=== PATIENT | female | born 1980 ===

== ENCOUNTER → 2025-02-28 09:16 | Outpatient (CLI) | payer OTHER, SELFPAY ==
[2025-02-28 10:50] LABS: HCG Quantitative /Beta subunit 111.59 mIU/mL
== END ==
PROVIDERS: PCP Obstetrics & Gynecology; Referring Provider Obstetrics & Gynecology; Visit Provider Obstetrics & Gynecology
DX: Z34.90 Encounter for supervision of normal pregnancy, unspecified, unspecified trimester (principal)
CPT/HCPCS: 36415; 84702

== ENCOUNTER → 2025-03-03 08:59 | Outpatient (CLI) | payer OTHER, SELFPAY ==
[2025-03-03 10:36] LABS: HCG Quantitative /Beta subunit 395.48 mIU/mL
== END ==
PROVIDERS: PCP Obstetrics & Gynecology; Referring Provider Obstetrics & Gynecology; Visit Provider Obstetrics & Gynecology
DX: N91.2 Amenorrhea, unspecified (principal)
CPT/HCPCS: 36415; 84702

== ENCOUNTER → 2025-03-07 10:19 | Outpatient (CLI) | payer OTHER, SELFPAY ==
[2025-03-07 11:17] LABS: HCG Quantitative /Beta subunit 1405.8 mIU/mL
== END ==
LOC: LAB 10:20
PROVIDERS: PCP Obstetrics & Gynecology; Referring Provider Obstetrics & Gynecology; Visit Provider Obstetrics & Gynecology
DX: Z34.90 Encounter for supervision of normal pregnancy, unspecified, unspecified trimester (principal)
CPT/HCPCS: 36415; 84702

== ENCOUNTER → 2025-03-12 07:44 | Outpatient (CLI) | payer OTHER, SELFPAY ==
--- NOTE | 2025-03-12 07:47 | DI.US.S_ITS ---
PROCEDURE: US OB <= 14 WEEKS FETUS INDICATIONS: size and dates OUTSIDE/PRIOR DATING DATA: Last menstrual period (LMP): 01/30/2025. LMP-based estimated date of delivery (MAGDALENA): 11/06/2025. TECHNIQUE: Real-time scanning was performed of the fetus and maternal pelvic organs, with image documentation. Endovaginal scanning was also performed to better visualize the fetus and maternal ovaries. COMPARISON: None. FINDINGS: A gestational sac is seen measuring 0.66 centimeters, consistent with 5 weeks and 3 days. No pole is identified. A yolk sac is present. Maternal organs: Right ovary is not seen. Possible left ovarian corpus luteal cyst. IMPRESSION: Gestational sac is seen containing a yolk sac. No pole is identified. Recommend follow-up ultrasound in 7-14 days to assess viability. We strive to produce accurate, complete, and clear reports of imaging services. To assist us in improving patient care, this report was composed using standard report templates and voice recognition software. Therefore, it may contain abnormal punctuation, insertions and/or omissions. Occasional wrong-word or sound-alike substitutions may occur. Though we review the report and make efforts to correct it, we do recommend that the report be read carefully in proper context to recognize any text inaccuracies. Dictated by: Jeremiah Beavers M.D. on 03/12/2025 at 10:00 Approved by: Jeremiah Beavers M.D. on 03/12/2025 at 10:02
== END ==
PROVIDERS: PCP Obstetrics & Gynecology; Referring Provider Obstetrics & Gynecology; Visit Provider Obstetrics & Gynecology
DX: Z34.91 Encounter for supervision of normal pregnancy, unspecified, first trimester (principal); Z3A.01 Less than 8 weeks gestation of pregnancy
CPT/HCPCS: 76801; 76817

== ENCOUNTER 2025-05-16 10:08 | Day surgery (SDC) | payer OTHER, SELFPAY ==
[2025-05-05 13:58] VITALS: BMI 33.5
[2025-05-16] VITALS (14 sets, daily range): BP systolic 97–137; BP diastolic 43–74; PULSE 61–100; RESP 14–22; TEMP 36–37.2; O2SAT 92–99; BMI 33.1
--- NOTE | 2025-05-16 | PATH_ITS ---
[facility] Accession Number: [id number] No. of containers..01 Tissue . 01 Material submitted: . uterus - UTERUS, CERVIX, BILATERAL FALLOPIAN TUBES . 01 Diagnosis: UTERUS, CERVIX, BILATERAL FALLOPIAN TUBES, ROBOTIC ASSISTED TOTAL LAPAROSCOPIC HYSTERECTOMY WITH BILATERAL SALPINGECTOMY (WEIGHT 175 GRAMS): Cervix with no significant histopathologic abnormality. Endocervix with no significant histopathologic abnormality. Weakly proliferative endometrium; negative for endometrioid intraepithelial neoplasia or malignancy. Myometrium with multiple intramural leiomyomas (4-21 mm greatest dimension) and with involvement by adenomyosis. Uterine serosa with multiple subserosal leiomyomas (3-19 mm in greatest dimension) Right fallopian tube, complete cross sections; negative for significant atypia. Left fallopian tube, complete cross sections, with a benign paratubal cyst (7 mm), negative for significant atypia, and with a dilated proximal lumen, suggestive of a hydrosalpinx. LYK 05/21/2025 1439 Local . 01 Electronically signed: . Catalina Martell MD, Pathologist NPI- [id number] . 01 Gross description: . Received in formalin labeled with two patient identifiers and 1. Uterus, cervix, bilateral fallopian tubes, is an intact uterus with cervix, detached right fallopian tube, and an attached left fallopian tube. The uterus and cervix are 175 grams, 9.8 cm from cervix to fundus, 7 cm cornu to cornu, 5.7 cm from anterior to posterior. . The uterine serosa is nichols-pink, focally hyperemic smooth and dusky. There are multiple subserosal nodules along the anterior serosa ranging from 0.3 to 1.9 cm, demonstrating nichols-white homogenous fibrous cut surfaces. The cervix is 3.7 cm in diameter with a nichols-pink, smooth, centrally granular ectocervical mucosa that surrounds a 0.9 cm slit os. The endometrial cavity is triangular and symmetrical 5.0 cm long by up to 4.0 cm in width with a pink-red, hemorrhagic, shaggy, and lush endometrial mucosa up to 0.8 cm. No mass is identified. The myometrium is nichols-pink and markedly trabeculated, up to 2.0 cm in thickness. There are multiple intramural nodules identified ranging from 0.4 to 2.1 cm. The nodule shows similar nichols-whorled, homogenous, fibrous cut surfaces. One intramural nodule (1.5 cm) shows focal scant central hemorrhage. The remaining nodules show no calcifications, necrosis, or hemorrhage. . The detached right fallopian tube is 5.5 cm long by 0.5 cm in diameter light nichols-pink, smooth, congested serosa and open fimbriae. The attached left fallopian tube is discontinuous, approximately 6 cm in length overall by 0.3 to 2 cm in diameter. The proximal segment is markedly convoluted with dilated lumen up to 2 cm and filled with serous fluid contents. The distal aspect is nichols-pink to solares-purple with smooth congested serosa and open fimbriae. There is a 0.7 cm paratubal cyst at the distal end. . Senior Systems Developer sections are submitted as follows: A1: Anterior cervix. A2: Posterior cervix. A3: Anterior endomyometrium. A4: Posterior endomyometrium. A5: Subserosal nodules. A6: Intramural nodule with central hemorrhage. A7: Remaining intramural nodules. A8: Right fallopian tube with entire fimbriae. A9-10: Left fallopian tube with entire fimbriae. ([id number]) /[facility] 05/21/2025 [facility] Local . 01 Pathologist provided ICD-10: D25.9, N80.03, N92.0 . 01 CPT . 97626 Specimen Comment: A courtesy copy of this report has been sent to [phone] Performed at: [address] [address], [place], [place] [id number] MD Bowen Jarvis MD Phone: [phone]
[2025-05-16] MEDS: SCOPOLAMINE 1 PATCH TOP (10:29)
[2025-05-16] MEDS: ACETAMINOPHEN 325 MG TABLET 975 MG PO (10:29)
[2025-05-16] MEDS: LACTATED RINGERS 1,000 ML 42 ML IV (10:30)
--- NOTE | 2025-05-16 10:46 | PM.PREOP ---
Pre-operative Note COVID-19 COVID-19 status: Not tested Interval Note History & Physical reviewed/Exam performed by Physician: Yes Changes to H&P: No
--- NOTE | 2025-05-16 11:24 | SUR.OPER ---
Lithotomy on padded OR bed. [place] Head Pad Positioner under torso. Head on pillow, arms padded and tucked at sides. Legs secured in padded yellow fins stirrups.
[2025-05-16] MEDS: LACTATED RINGERS 1,000 ML 21 ML IV (12:03)
--- NOTE | 2025-05-16 13:58 | PM.GYNOP.1 ---
Operative Date/Time/Diagnoses Date of procedure: 05/16/25 Time of procedure: 11:40 Pre-op diagnosis: Adenomyosis Menorrhagia Uterine fibroids Post-op diagnosis: same Procedure & Clinicians Procedure: Procedures Operation Date: 05/16/25 11:15 Actual Procedure Side Surgeon p Robotic assisted total laparoscopic hysterectomy with bilateral salpingectomy Yuri Wyman MD Indications: Nadine is a 44-year-old , LMP 11/14/2024, who presents in referral for evaluation of extremely heavy and painful menses. Patient experienced menarche at age 8 and her periods were irregular until after she had her 1st child. She conceived on oral contraceptives as well as with an IUD in place. She has had 5 vaginal births with her largest being 8 lb 14 oz. She denies any use of forceps, and has no symptoms of prolapse. Review of systems is also negative for stress urinary incontinence. Patient currently has regular menses but has 4-5 days of extremely heavy bleeding with passage of clots, and accidents, and occasional overflows. Patient has a history of abnormal Paps in the past but her most recent Pap was earlier this year and it was normal. Patient has also a history of uterine fibroids which were noted at the time of her most recent which she delivered about 18 months ago. She had laparoscopy in 1998 which demonstrated pelvic endometriosis. She also has a history of pelvic inflammatory disease. She denies any intermenstrual bleeding or postcoital bleeding. Endometrial sampling and Pap are negative. After consideration of all options, she has opted to proceed with robotically assisted total laparoscopic with bilateral salpingectomy and she presents today for her scheduled surgery. Surgeon: Yuri Wyman Anesthesia Type: General Operative Notes Findings: The uterus is 6-8 weeks in size and irregular in contour consistent with intramural/subserosal myomas. Both the anterior and posterior cul-de-sac are free adhesions and/or endometriosis. The ovaries on both sides are normal. There is a hydrosalpinx of the left fallopian tube with the adjacent scarring to the pelvic sidewall and fallopian tube. The left fallopian tube appears normal. In the posterior cul-de-sac there is a single free floating Filshie clip but there has not a 2nd Filshie clip in the pelvis either in the cul-de-sac or applied to either fallopian tube. The remainder of the abdomen and pelvis were normal to laparoscopic inspection. Closure Type: primary Specimen(s): left tube, right tube and uterus Applied: catheter Estimated blood loss (mL): 75 Blood products transfused: none Procedure in detail: With the patient under satisfactory general anesthesia in the modified dorsal lithotomy position, the perineum, vagina, and abdomen were prepped and draped in the usual manner for total laparoscopic hysterectomy with robotic assist.? A pre-surgical safety time-out was then taken in accordance with [facility] OR protocols.? A bivalve speculum was then placed in the vagina and the cervix visualized.? The anterior lip of the cervix was then grasped with single-tooth tenaculum and the endocervical canal dilated to 6 mm with Hegar dilators.? A stitch was then placed in the anterior lip of the cervix using 1. PDS and the suture was threaded through the colpotomy cup of the VCare which was then introduced into the endometrial cavity without difficulty.? Once the VCare was placed, preparations for laparoscopy were initiated.? An 8 mm transverse incision was then made above the umbilicus after infiltration with 0.5% Marcaine with epinephrine.? A varies needle was then used to insufflate the abdominal cavity and once properly insufflated, an 8 mm trocar and sleeve were introduced through the incision into the abdominal cavity.? Correct placement of the sleeve in the abdominal cavity was confirmed with a 5 mm scope.? Two additional 8 mm trocars and sleeves were then placed laterally on the patient's right side using a similar technique, and 1 additional 8 mm trocar was then placed laterally on the patient's left side. ?The patient was then placed in 27 degree Trendelenburg position. ?The robot was brought in and positioned on the patient's left side. ?The robotic scope was then placed through the 8 mm #2 Port and aimed at the uterus as the focal point of surgery.? A vessel sealer, fenestrated bipolar grasper, and laparoscopic scissors were then placed in the 3 remaining ports.? The pelvis was carefully inspected with the findings as noted above.? A 5 mm assist port was placed between the umbilicus and the right mid quadrant port. The pelvis was inspected with the findings as noted above and the Filshie clip in the posterior cul-de-sac was removed with 5 mm grasper introduced through an 8 mm port. Attention was then turned to the left adnexa with the distal tube grasped with the fenestrated bipolar grasper. ?The vessel sealer was used to coagulate and divide the fimbria ovarica all the way over to the left cornua.? The vessel sealer was then used to coagulate and divide 1st the utero-ovarian ligament on the left followed by the round ligament on the left.? The dissection was carried down to the bladder reflection.? The peritoneum at the level of the bladder reflection was then taken down with the vessel sealer across the midline and the bladder was easily advanced.? The ascending uterine vessels were then taken on the left side with the fenestrated bipolar grasper and divided with the scissors.? There was no significant bleeding noted.? Attention was then turned to the right adnexa with the distal tube grasped with the fenestrated bipolar grasper.? The fimbria ovarica was then coagulated and divided with the vessel sealer and then dissection was carried across the mesosalpinx to the cornua on the right.? The utero-ovarian ligament was then coagulated and divided and the dissection carried down across the round ligament on the right down to the level of the vessels at the bladder reflection.? The bladder flap was then completed using the vessel sealer and the bladder further advanced beyond the level of the colpotomy cup.? The fenestrated bipolar grasping forceps were used to coagulate the ascending uterine vessels on the right side and they were transected then with the monopolar scissors.? Anterior colpotomy was then performed along the line of the colpotomy cup using the monopolar cutting current in the scissors in a similar posterior incision was made along the line of the colpotomy cup.? Once the ascending uterine vessels were isolated, each side was coagulated and divided with the fenestrated bipolar forceps and the monopolar scissors.? Once the uterus was completely freed, it was removed through the vaginal canal along with the VCare.? A moistened towel was then introduced into the vaginal canal as an obturator and the vaginal cuff was closed in 2 layers using 0 strata fix suture.? The pelvis was thoroughly irrigated and inspected for any other abnormality or bleeding.? There were no abnormalities or bleeding noted and the pneumoperitoneum was vented.? The laparoscopy port sleeves were then removed and each of the incisions were closed with 4-0 Monocryl using inverted interrupted stitches.? The port incisions were then covered with an appropriate dressing and the patient was awakened from anesthesia.? She was then transferred to the PACU for a period of observation and recovery after having tolerated the procedure well. Complications: none Post-operative Condition: stable Disposition: PACU Plan for aftercare: Routine PACU care with transfer to acute care for a period of recovery prior to discharge.
[2025-05-16] MEDS: fentaNYL 100 MCG/2 ML INJ IV ×8 (14:20→14:57)
[2025-05-16] MEDS: ACETAMINOPHEN 325 MG TABLET 650 MG PO ×2 (15:55→21:57)
[2025-05-16] MEDS: KETOROLAC 30 MG/ML VIAL IV ×2 (16:48→21:57)
[2025-05-16] MEDS: LACTATED RINGERS 1,000 ML 100 ML IV ×2 (16:49→18:22)
[2025-05-16] MEDS: ONDANSETRON 4 MG/2 ML INJ IV (22:48)
[2025-05-17] MEDS: KETOROLAC 30 MG/ML VIAL IV ×2 (04:21→13:35)
[2025-05-17] MEDS: ACETAMINOPHEN 325 MG TABLET 650 MG PO ×2 (04:21→12:04)
[2025-05-17] MEDS: LACTATED RINGERS 1,000 ML 100 ML IV (04:24)
[2025-05-17 08:00] VITALS: BP 107/66; PULSE 72; RESP 14; TEMP 36.6; O2SAT 99
--- NOTE | 2025-05-17 10:14 | P.DS_ITS ---
History of Present Illness History of Present Illness Date Patient Seen: 05/17/25 Time Patient Seen: 10:14 Chief complaint: Menorrhagia, adenomyosis, uterine fibroids Narrative: Nadine is a 44-year-old , LMP 11/14/2024, who presents in referral for evaluation of extremely heavy and painful menses. Patient experienced menarche at age 8 and her periods were irregular until after she had her 1st child. She conceived on oral contraceptives as well as with an IUD in place. She has had 5 vaginal births with her largest being 8 lb 14 oz. She denies any use of forceps, and has no symptoms of prolapse. Review of systems is also negative for stress urinary incontinence. Patient currently has regular menses but has 4-5 days of extremely heavy bleeding with passage of clots, and accidents, and occasional overflows. Patient has a history of abnormal Paps in the past but her most recent Pap was earlier this year and it was normal. Patient has also a history of uterine fibroids which were noted at the time of her most recent which she delivered about 18 months ago. She had laparoscopy in 1998 which demonstrated pelvic endometriosis. She also has a history of pelvic inflammatory disease. She denies any intermenstrual bleeding or postcoital bleeding. Endometrial sampling and Pap are negative. After consideration of all options, she has opted to proceed with robotically assisted total laparoscopic with bilateral salpingectomy and she presents today for her scheduled surgery. Discharge Providers Provider Date of admission: 05/16/2025 Discharge Date: 05/17/25 Primary care physician: Marianne Guillermo DO Discharge provider: Yuri Wyman MD Summary Hospital Course Discharge Diagnosis: Menorrhagia Adenomyosis Uterine fibroids Status post robotically assisted total laparoscopic hysterectomy with bilateral salpingectomy Hospital Course: On 05/16/2025, the patient underwent an uneventful robotically assisted total laparoscopic hysterectomy with bilateral salpingectomy. Full details of the procedure well summarized on my operative note of that date. Following surgery the patient has done extremely well with prompt return of bowel and bladder function, she is ambulating independently, tolerating a regular diet, and her pain is well-controlled with oral pain medications. She is having some pain associated with the most inferior incision on the right side which manifests as right hip pain but she has no impingement of mobility in the right hip. She will be discharged at this time in an afebrile normotensive condition to home after counseling regarding precautionary symptoms, limitations activity, medications, and plans for follow-up which will be in 2 weeks. Medications at discharge will include resumption of all preadmission medications as well as oxycodone 5 mg every 4-6 hours as needed for pain, dispensed 20 with no refills, and Cipro 500 mg p.o. b.i.d. x5 days for UTI prophylaxis following catheterization. Status at Discharge Functional status at discharge: independent ambulation Overall status at discharge: patient is progressing back to baseline Time Spent with Patient Time spent: Less than 30 minutes Exam Vital Signs (past 8 hours): - 05/17/25 08:00 Temperature 97.9 F Pulse Rate 72 Respiratory Rate 14 Blood Pressure 107/66 Pulse Oximetry 99 Oxygen Flow Rate 0 Oxygen Delivery Method Room Air Oxygen Flow Rate 0 Const General: cooperative and comfortable Nutritional Appearance: average body habitus Orientation: alert and oriented x3 HENMT Head: normal to inspection, atraumatic and abrasion Ears: hearing grossly normal bilaterally Face and sinus: face symmetric Eyes General: appearance normal, both eyes and all related structures Conjunctivae: conjunctivae normal Sclera: sclerae normal EOM: EOM intact bilaterally Neck Neck: normal visual inspection Resp Effort & Inspection: normal respiratory effort and able to speak in complete sentences Auscultation: clear to auscultation bilaterally Cardio Rate: regular rate Rhythm: regular rhythm Heart Sounds: S1 normal, S2 normal and no murmurs GI Inspection: normal to inspection and incision (Surgical dressings clean and dry) Palpation: soft, no hepatosplenomegaly and tender (Mild, diffuse postsurgical tenderness) External Female Exam: other (No significant bleeding noted) Extrem General: no calf tenderness Psych Appearance: grossly normal Mental Status: mental status grossly normal Speech and Movement: speech and movement normal Mood: congruent mood Affect: normal affect Attitude: cooperative Thought Process: normal Thought Content: normal Judgment: judgment good Objective Labs Labs: Laboratory Results - last 24 hr 05/16/25 05/16/25 05/16/25 10:34 13:59 16:46 POC Whole Bld Glucose 89 137 H 137 H 05/16/25 05/17/25 20:49 07:27 POC Whole Bld Glucose 119 H 89 [facility] Medical History (Updated 05/05/25 @ 14:13 by Ekaterina Gomez RN) PID (pelvic inflammatory disease) HPV in female Polycystic ovaries History of uterine fibroid Hemorrhoids Headache, migraine Stomach ulcer HLD (hyperlipidemia) HTN (hypertension) Asthma Cervical cancer History of ectopic Anxiety Depression Metabolic syndrome History of abnormal cervical Pap smear History of endometriosis Surgical History (Updated 05/05/25 @ 14:13 by Ekaterina Gomez RN) History of loop electrical excision procedure (LEEP) History of reversal of tubal ligation (2019) Hx of tubal ligation (2008) Social History household members: children Smoking Status: Never smoker alcohol intake: never Discharge Assessment & Plan Assessment and Plan Assessment: Menorrhagia Adenomyosis Uterine fibroids Status post robotically assisted total laparoscopic hysterectomy with bilateral salpingectomy Plan of Treatment: Routine postoperative care with follow-up planned for 2 weeks after surgery or as needed. Discharge Plan Discharge Plan Provider Discharge Comment: Please review the written instructions you received when you were discharged from the hospital. Your follow-up appointment is scheduled for 2 weeks after surgery and we look forward to seeing you then. If however in the meanwhile you have any issues, concerns, or questions, please contact the office either by phone at [phone], or via the patient portal. Discharge orders & Medications Prescriptions: New oxycodone 5 mg tablet 5 mg PO Q4-6H PRN (Reason: pain) Qty: 20 0RF ciprofloxacin HCl [Cipro] 500 mg tablet 500 mg PO BID Qty: 10 0RF Continued metformin 500 mg tablet 500 mg PO TID sertraline 25 mg tablet 25 mg PO DAILY Follow up/Referrals: Marianne Guillermo DO [Primary Care Provider, SLIP COVER ESTIMATOR] Yuri Wyman MD [Physician, SLIP COVER ESTIMATOR] Discharge Health Status Multidrug resistant organism: No MDRO Diet/Activity/Treatments Diet: Diet as Tolerated Activity: As tolerated Other treatments: Svaa-nex-pepfott Tylenol may be used for additional pain relief. Kfxm-ank-rikhbwf stool softeners and/or MiraLax may be used as needed for constipation. Skin/Wound/Dressing Care Report to your healthcare provider any signs of infection, such as:: chills, fever, increased pain, unusual drainage and unusual redness Dressing: Dressings should be removed on 05/18/2025 Visit Report/Discharge Packet Instructions: DI for Hysterectomy, DI for Laparoscopy, DI for Prescription Opioid Use Stand Alone Forms: Surgery Discharge Print Language: Kinyarwanda Discharge Data Primary Care Provider: Marianne Guillerom Attending Provider: Yuri Wyman VTE Deep Vein Thrombosis/Pulmonary Embolism Present on Admission: No IH PROFEE Charge Codes Discharge inpatient/observation: [id number]
--- NOTE | 2025-05-17 18:06 | PC.NURSE ---
Discharge: Pt feels ready to d/c to home. Meredith out and has voided several times. Up in room, rt hip still does bother her. She thinks it might be less painful today than yesterday and it was helpful when the oxy was increased. Tolerates diet w/out problems. MD gave discharge instructions. Discharge packet given and reviewed. Rx has been esent. Pt d/c to home via auto with family.
== END 2025-05-17 14:35 | disposition home or self-care (01) ==
LOC: OR 10:09 → AC 11:11
PROVIDERS: PCP Obstetrics & Gynecology; Referring Provider Obstetrics & Gynecology; Visit Provider Obstetrics & Gynecology
PROC: 0UT94ZZ Resection of Uterus, Percutaneous Endoscopic Approach (ICD-10-PCS; CPT 58571; principal; 2025-05-16 11:15)
DX: N80.03 Adenomyosis of the uterus (principal); N92.0 Excessive and frequent menstruation with regular cycle; N70.11 Chronic salpingitis; D25.1 Intramural leiomyoma of uterus; D25.2 Subserosal leiomyoma of uterus; N83.8 Other noninflammatory disorders of ovary, fallopian tube and broad ligament
CPT/HCPCS: 58571; 81025; 82962; J0689; J1100; J1171; J1885; J2250; J2405; J2704; J3010; J3490; J7120

== ENCOUNTER → 2025-05-30 11:55 | Outpatient (CLI) | payer OTHER, SELFPAY ==
[2025-05-16 15:15] VITALS: BMI 33.1
== END ==
PROVIDERS: PCP Obstetrics & Gynecology; Referring Provider Obstetrics & Gynecology; Visit Provider Obstetrics & Gynecology
DX: R30.0 Dysuria (principal)
CPT/HCPCS: 87086